=== PATIENT | male | born 1930 | race Caucasian/White ===

== ENCOUNTER → 2017-01-15 15:46 | Outpatient (CLI) | payer MEDICARE, BC | END | disposition home or self-care (01) | LOC: D.LABREF 15:46 | DX: N39.0 Urinary tract infection, site not specified (principal); R31.9 Hematuria, unspecified ==

== ENCOUNTER 2017-02-07 07:12 | Day surgery (SDC) | payer MEDICARE, BC ==
[~2017-02-07] VITALS: Ht 182.9 cm; Wt 81.6 kg
[~2017-02-07 07:12] MED LIST: FLOMAX0.4 MG PO; GENTEAL LUBRICA15 ML EACH EYE; LIPITOR20 MG PO; MIRALAX17 GM PO; NAMENDA10 MG PO; VITAMIN C1000 MG PO; VITAMIN D31000 UNI2 PO; VITAMIN E100 UNIT PO
[2017-02-07 07:55] LABS: BASOPHILS 0.6 % (0-2); EOSINOPHILS 9.5 % (0-7); HEMATOCRIT 46.3 % (42.0-54.0); IMMATURE GRANULOCYTES 0.4 % (0-5); LYMPHOCYTES 15.6 % (15-50); MCH 29.5 pg (26.0-34.0); MCHC 32.4 g/dL (31.0-37.0); MCV 91.1 fL (80.0-100.0); MEAN PLATELET VOLUME 9.6 fL (7.4-10.4); MONOCYTES 7.4 % (2-11); NEUTROPHILS 66.5 % (40-80); PLATELET COUNT 158 10x3/uL (130-400); RBC 5.08 10x6/uL (4.20-6.10); RDW 14.6 % (11.5-14.5)
[2017-02-07 08:03] LABS: ANION GAP 11.6 mmol/L (8-16); CALCIUM 8.9 mg/dL (8.5-10.1); CARBON DIOXIDE 30.5 mmol/L (21.0-32.0); CREATININE - SERUM 1.2 mg/dL (0.6-1.3); POTASSIUM - SERUM 4.1 mmol/L (3.5-5.1)
[2017-02-07 08:22] VITALS: BP 133/81; Ht 182.9 cm; Wt 81.6 kg
--- NOTE | 2017-02-07 13:13 | OP ---
PATIENT NAME: TEJAL MARR MEDICAL RECORD: [id number] :31 LOCATION:[facility] ADMISSION DATE: SURGEON: MATTIE BAHENA MD DATE OF OPERATION: 02/07/2017 SURGEON: Mattie Bahena M.D. ANESTHESIA: MAC by Dr. Rocha. PREOPERATIVE DIAGNOSIS: Phimosis. POSTOPERATIVE DIAGNOSIS: Phimosis. PROCEDURE: Circumcision. COMPLICATIONS: None. ESTIMATED BLOOD LOSS: None. CLINICAL HISTORY: This is an 86-year-old man who has dementia. The history is primarily from his , Amber. He has problems with recurring urinary tract infections. Since New Year's in 2017, he has had four of them. He has problems with the foreskin being so tight that he cannot completely clean underneath. Also, when he tries to urinate, it balloons out from the urine. He comes now to have circumcision performed. He is not allergic to any medications. He was given Ancef 2 grams IV transition assistant to the OR. We are going to perform the procedure with MAC and local anesthetic. DESCRIPTION OF PROCEDURE: The patient was given IV sedation. He was in supine position and he was prepped and draped. A penile nerve block was given using 2% lidocaine without epinephrine. At the base of the penis on either side of the dorsal midline, we aspirated to make sure that we were on the vein. We then injected the lidocaine. We also went circumferentially around the base of the penis with the 2% lidocaine. Towards the mid shaft level, I also injected the dorsal midline with the local anesthetic. We then performed a dorsal slit. A straight clamp was used to crush the tissue in the dorsal midline of the foreskin. A Metzenbaum scissors was used to make the incision. We continued this incision until we could fully expose the glans penis. The glans penis was then prepped again with iodine. Skin incisions were marked out using a marking pen. The mucosal foreskin had the incision marked out about 5 mm proximal to the mahoney of the glans penis. A 2-0 nylon suture was placed through the glans penis and used for traction. The penis was pulled into full erectile length. The cutaneous foreskin was then marked with the skin marker to correspond to the location of the ryan on the mucosal foreskin. Two incisions are made using a #15 blade. The dartos fascia in between the 2 were cut with Metzenbaum scissors and then the entire foreskin specimen was sent to pathology in formalin. Then we used Bovie to stop any bleeding points. The skin was reapproximated using simple interrupted 4-0 Vicryl. Dressings were Vaseline gauze and Kerlix wrapped around the penis and tied into a knot on to itself. The patient will be sent home with a prescription for Tylenol #3. The has instructions to remove the dressing tomorrow. He can shower in 2 days. I will see him in followup in the [place] [facility] next week to check on the wound healing. TRANSINT:[id number] Voice Confirmation ID: [id number] DOCUMENT ID: [id number] OPERATIVE REPORT [id number] TEJAL MARR, MATTIE Deras MD at 1313 CC: [id number] DICTATION DATE: 02/07/17 1111 RN CARDIAC CATH: 02/07/17 1207 [id number] [place] [address]
== END 2017-02-07 13:00 | disposition home or self-care (01) ==
LOC: D.OPS 07:12 → D.PAN 09:00 → D.OPS 09:00 → D.PAN 09:05 → D.OPS 13:00
PROVIDERS: Anesthesiology
DX: N47.1 Phimosis (principal); F17.200 Nicotine dependence, unspecified, uncomplicated; Z01.812 Encounter for preprocedural laboratory examination

== ENCOUNTER → 2017-03-28 08:07 | Outpatient (CLI) | payer MEDICARE, BC ==
[2017-02-07 08:22] VITALS: BMI 24.4
== END | disposition home or self-care (01) ==
LOC: D.RAD 08:07
DX: J69.0 Pneumonitis due to inhalation of food and vomit (principal)

== ENCOUNTER → 2017-07-17 08:24 | Outpatient (CLI) | payer MEDICARE, BC ==
[2017-02-07 08:22] VITALS: BMI 24.4
== END | disposition home or self-care (01) ==
LOC: D.RAD 08:24
DX: J69.0 Pneumonitis due to inhalation of food and vomit (principal)